=== PATIENT | female | born 1965 | race Caucasian/White ===

== ENCOUNTER 2023-11-18 04:48 | Emergency (ER) | payer BC, SELFPAY ==
[2023-11-18 04:50] VITALS: BP 147/81
--- NOTE | 2023-11-18 05:25 | ED.GENMED ---
History of Present Illness
General
Chief Complaint: Musculo-Skeletal Complaint
Source: patient
Exam Limitations: none
Time Seen by Provider: 11/18/23 05:15
Nursing documentation reviewed up to this point in time: agreed with
History of Present Illness
History of Present Illness:
This is a 57-year-old woman who complains of left shoulder pain that began 5 days ago. No insightful injury. She is left-hand dominant. Left shoulder pain is much worse with abduction and internal rotation. She has been taking Aleve sporadically
with only minimal relief. She was evaluated at urgent care and reports x-rays were unremarkable.
She states she was told by urgent care that she may need an MRI and she presents today for further evaluation.
No history of similar episodes of shoulder pain in the past. She denies fevers or chills, no headache. She does admit to mild discomfort left posterior lateral neck that she only noticed today.
She has no weakness nor numbness. No swelling. No chest pain or palpitations.
Past History
Past History
ED Past Medical History: Asthma, GERD, Hypercholesterolemia, Hypothyroidism, Psychiatric (A/D) and Other (back pain, ARETHA)
ED Past Surgical History: Other (n/c)
Social History
Tobacco: Non-smoker
Alcohol: Occasional
Drug: None
Personal:
Living: with family
Employment: Employed
Family History
Family History: Other (n/c)
Phy Exam
Physical Exam
Physical Exam:
GENERAL: 57-year-old overweight woman appears her stated age, awake and alert, pleasant, appears in no acute distress.
NECK: Supple, nontender, no meningismus, no significant adenopathy.
ENT: oral mucosa is moist. No rhinorrhea.
CARDIAC: Regular rate and rhythm. no murmur.
LUNGS: Clear breath sounds bilaterally, no acute respiratory distress, no wheezes/rales/rhonchi
ABDOMEN: Rotund, soft, nondistended, without focal tenderness
NEUROLOGICAL: Alert and oriented x3, no focal neuro deficits. Gait is mckeon and steady.
SKIN: Warm and dry, normal color, skin intact. No rash.
MUSCULOSKELETAL: No C/C/E. peripheral pulses are full and equal b/l. There is moderate tenderness about the left shoulder but no erythema, no joint effusion, no crepitus. Moderately restricted abduction as well as internal rotation. No difficulty
with external rotation. There is no tenderness to the forearm, elbow. Hand grasp are full and equal bilaterally.
PSYCH: Normal and appropriate interaction.
Course
Orders/Labs/Results
Orders:
Orders
11/18/23 05:25
Ketorolac [Toradol] 60 mg IM NOW STA
Vital Signs
Initial and Last Documented VS:
Initial Vital Signs
Temp Pulse Resp BP Pulse Ox
98.5 F 66 18 147/81 99
11/18/23 04:50 11/18/23 04:50 11/18/23 04:50 11/18/23 04:50 11/18/23 04:50
Last Documented Vital Signs
Temp Pulse Resp BP Pulse Ox
98.5 F 66 18 147/81 99
11/18/23 04:50 11/18/23 04:50 11/18/23 04:50 11/18/23 04:50 11/18/23 04:50
MDM/Problems Addressed
Differential Diagnosis Includes:
5-day history of left shoulder pain without history of trauma.
Moderate tenderness about the left shoulder with limited range of motion related to pain but no evidence of frozen shoulder, there is no erythema, nothing to suggest infectious/inflammatory process.
History and exam most consistent with left shoulder tendinitis.
Recommend supportive measures, NSAIDs, local heat, rest.
Recommend follow-up with PCP as physical therapy may be indicated.
At this point no indication for urgent/emergent MR especially as she has had no history of significant trauma, no evidence of neuropathy/neurologic deficit.
Will give an IM dose of Toradol and a prescription for diclofenac has been provided. Discussed importance of taking diclofenac with food.
*Pulse Oximetry
Patient hypoxic: no
*Critical Care Note
Total Time (30-74mins, 75-104mins- exclusive of procedures): Not Applicable
ED Attending Note
-
Portions of this chart may have been created with voice recognition software.� Occasional wrong word or��sound alike� substitutions may have occurred due to the inherent limitations of voice recognition software.
Discharge Plan
Departure
Patient Disposition: Home (Routine Discharge)
Date of Disposition: 11/18/23
Time of Disposition: 05:25
Patient with high blood pressure during this ER visit?: Yes
Condition: Good
Discharge Problem:
Biceps tendinitis of left shoulder
Instructions: Biceps tendinopathy, BLOOD PRESSURE
Prescriptions:
New
diclofenac sodium 75 mg tablet,delayed release (DR/EC)
75 mg PO BID PRN (Reason: pain) Qty: 30 0RF
No Action
magnesium oxide 400 MG tablet
800 mg PO HS
omeprazole 20 MG capsule,delayed release(DR/EC)
20 mg PO HS
rabies vacc,human diploid (PF) [Imovax Rabies Vaccine (PF)] 1 ML recon soln
1 ml IM NOW Qty: 1 3RF
Rx Instructions:
to be given on 06/27/21, 06/30/21, 07/07/21
rosuvastatin 5 MG tablet
5 mg PO QPM
zolpidem 5 MG tablet
5 mg PO HS
metaxalone 400 MG tablet
400 mg PO Q4HPRN PRN (Reason: pain)
ubrogepant [Ubrelvy] 50 MG tablet
50 mg PO DAILY PRN (Reason: migraine)
praziquantel 600 mg tablet
3,000 mg PO ONCE Qty: 10 0RF
Rx Instructions:
Repeat 10 days later
Referrals:
Inessa Reyez DO [Active] - Call in 1-3 days for appt
Interventions
Interventions:
*Risk Screen - Suicide Last Done: 11/18/23 04:50
*General Assessment Last Done: 11/18/23 04:50
*Neglect/Abuse Screening Last Done: 11/18/23 04:50
Discharge Date and Time
Print Language: SYRIAC
[2023-11-18 05:36] VITALS: BMI 45.6
[2023-11-18 05:45] VITALS: BP 118/70
[2023-11-18] MEDS: TORADOL 60 MG IM (05:45)
== END 2023-11-18 05:55 | disposition home or self-care (01) ==
LOC: EMR 04:48
PROVIDERS: EMERGENCY PHYSICIAN Emergency Medicine; FAMILY PHYSICIAN Family Medicine
DX: M75.22 Bicipital tendinitis, left shoulder (principal); M54.2 Cervicalgia; R03.0 Elevated blood-pressure reading, without diagnosis of hypertension; K21.9 Gastro-esophageal reflux disease without esophagitis; E78.00 Pure hypercholesterolemia, unspecified; E03.9 Hypothyroidism, unspecified; G47.33 Obstructive sleep apnea (adult) (pediatric); F41.9 Anxiety disorder, unspecified; F32.A Depression, unspecified; M54.9 Dorsalgia, unspecified; Z88.5 Allergy status to narcotic agent; Z88.0 Allergy status to penicillin; Z91.048 Other nonmedicinal substance allergy status
CPT/HCPCS: 99284; 96372

== ENCOUNTER 2024-02-17 10:45 | Emergency (ER) | payer BC, SELFPAY ==
[2024-02-17 11:05] VITALS: BP 137/91
--- NOTE | 2024-02-17 11:11 | ED.GENMED ---
History of Present Illness
<Sara Gimenez PA-C - Last Filed: 02/17/24 17:37>
General
Chief Complaint: Skin Problem
Source: patient
Exam Limitations: none
Time Seen by Provider: 02/17/24 11:09
Nursing documentation reviewed up to this point in time: agreed with
History of Present Illness
History of Present Illness:
58-year-old female with past medical history of anxiety, depression, asthma, presenting emergency department today with concerns of left breast mass. Patient states that she first noticed a small bump around 3 weeks ago. Patient states that she
reportedly put castor oil and mupirocin over it and she reports that it did not improve and continued to get bigger. Patient reports that within the last 3 days, she started to have pain in the area and noted redness surrounding it. Patient denies
any drainage from the area. Patient also states that last night, she noticed the breast pain radiate into her left arm. Patient denies any fevers or chills, any nausea or vomiting. She was seen by urgent care today who advised her to report to
the emergency department. Patient is never had issues with her breast before. Patient is currently postmenopausal, she takes oral exogenous estrogen. Patient denies any drainage from her nipples. Patient denies any streaking of the rash or
redness into her left arm.
Past History
<Sara Gimenez PA-C - Last Filed: 02/17/24 17:37>
Past History
ED Past Medical History: Asthma, GERD, Hypercholesterolemia, Hypothyroidism, Psychiatric (A/D) and Other (back pain, ARETHA)
ED Past Surgical History: Other (n/c)
Social History
Tobacco: Non-smoker
Alcohol: Occasional
Drug: None
Personal:
Living: with family
Employment: Employed
Family History
Family History: Other (n/c)
Review of Systems
<Sara Gimenez PA-C - Last Filed: 02/17/24 17:37>
Review of Systems
All Other Systems: ROS reviewed and negative except as documented in HPI and ROS
Phy Exam
<Sara Gimenez PA-C - Last Filed: 02/17/24 17:37>
Physical Exam
Physical Exam:
General: Patient is well appearing and in no acute distress; non-toxic
Skin: Warm and dry, red fluctuant mass noted in the left lower quadrant of the left breast with no active drainage. No discharge expressed from the nipple. No axillary lymphadenopathy. No breast dimpling. Mild erythema noted in the upper outer
quadrant of left breast, no streaking of rash down the arm.
Head: Normocephalic, atraumatic
Eyes: Sclera non-icteric. EOMs intact.
Cardiac: Regular rate and rhythm, no murmurs
Pulm: Normal respiratory effort
Musculoskeletal:No tenderness to palpation of the left upper extremity.
Neuro: CN II-XII intact, no focal neurologic deficits.
Psychiatric: Appropriate mood and affect.
Course
<Sara Gimenez PA-C - Last Filed: 02/17/24 17:37>
Orders/Labs/Results
Orders:
Orders
02/17/24 10:46
ECG [Electrocardiogram (*1)] Urgent
Reason for Study: Chest Pain
EKG- Treatment ONCE
02/17/24 11:42
Complete Blood Count/With Diff Urgent
Comprehensive Metabolic Panel Urgent
02/17/24 11:46
US Breast Left Ltd [facility] Urgent
Reason for Exam: MASS/REDNESS
Abnormal Lab Results
02/17/24
11:42
Monocytes % 9.5 H %
(1.7-9.3)
Eosinophils % 6.8 H %
(0-6)
Chloride 108 H mmol/L
(98-107)
BUN 19 H mg/dl
(7-17)
Glucose 125 H mg/dl
(70-99)
ALT 39 H U/L
(0-35)
02/17/24 11:42
02/17/24 11:42
Vital Signs
Initial and Last Documented VS:
Initial Vital Signs
Temp Pulse Resp BP Pulse Ox
98.6 F 70 16 137/91 98
02/17/24 11:05 02/17/24 11:05 02/17/24 11:05 02/17/24 11:05 02/17/24 11:05
Last Documented Vital Signs
Temp Pulse Resp BP Pulse Ox
98.6 F 70 14 114/80 100
02/17/24 11:05 02/17/24 13:48 02/17/24 13:48 02/17/24 13:48 02/17/24 13:48
<Ayush Sinha, DO - Last Filed: 02/17/24 13:29>
Orders/Labs/Results
Orders:
Orders
02/17/24 10:46
ECG [Electrocardiogram (*1)] Urgent
Reason for Study: Chest Pain
EKG- Treatment ONCE
02/17/24 11:42
Complete Blood Count/With Diff Urgent
Comprehensive Metabolic Panel Urgent
02/17/24 11:46
US Breast Left Ltd [facility] Urgent
Reason for Exam: MASS/REDNESS
Abnormal Lab Results
02/17/24
11:42
Monocytes % 9.5 H %
(1.7-9.3)
Eosinophils % 6.8 H %
(0-6)
Chloride 108 H mmol/L
(98-107)
BUN 19 H mg/dl
(7-17)
Glucose 125 H mg/dl
(70-99)
ALT 39 H U/L
(0-35)
02/17/24 11:42
02/17/24 11:42
Vital Signs
Initial and Last Documented VS:
Initial Vital Signs
Temp Pulse Resp BP Pulse Ox
98.6 F 70 16 137/91 98
02/17/24 11:05 02/17/24 11:05 02/17/24 11:05 02/17/24 11:05 02/17/24 11:05
Last Documented Vital Signs
Temp Pulse Resp BP Pulse Ox
98.6 F 70 14 114/80 100
02/17/24 11:05 02/17/24 13:48 02/17/24 13:48 02/17/24 13:48 02/17/24 13:48
Sugeylt;Sara Gimenez PA-C - Last Filed: 02/17/24 17:37>
MDM/Problems Addressed
Differential Diagnosis Includes:
Differentials include breast abscess, cyst, fibrotic disease, candidal infection, inflammatory breast cancer, mastitis/cellulitis
MDM/Problems Addressed:
58-year-old female history of hydradenitis suppurativa, postmenopausal on oral estrogen presents to the emergency department today with concerns of left painful breast mass. Physical exam is consistent with breast abscess, there is no drainage from
nipple, there is no lymphangitis or streaking down the arm. She had ultrasound today which demonstrated possibly an infected sebaceous cyst. Her CBC and CMP are unremarkable. No indications for admission for IV antibiotics at this time. I spoke
to Dr. Patel, breast surgeon, who recommends IR aspiration of the cyst. Spoke to IR who states that the cysts is not big enough that it would require ultrasound drainage and they stated that they were busy today, so again discussed this with
Amanda who will see patient today in the office for aspiration, and prefers to do a culture at that time and prefers to start an antibiotic herself. For this reason, we will not be sending the patient a prescription for antibiotic as patient will
be seen the breast surgeon shortly after being discharged. Discussed this with patient, patient is okay with this plan, discussed return precautions, patient stable for discharge
Chronic conditions affecting care:
Anxiety, depression, asthma, hyperlipidemia, GERD
Acute Exacerbation and/or Progression of Chronic Illness:
n/a
<Sara Gimenez PA-C - Last Filed: 02/17/24 17:37>
*Pulse Oximetry
Patient hypoxic: no
*Critical Care Note
Total Time (30-74mins, 75-104mins- exclusive of procedures): Not Applicable
Data Reviewed
Review of Other/Old Records Reveals: Records (Reviewed ER physician documentation from 11/18/2023, reviewed ER physician documentation from 04/26/2023, patient was treated for tapeworm infection)
Source: patient and records
Prescriptions/Medications Considered But Not Given:
Considered starting patient on antibiotic however patient will see the breast surgeon today who will start her on an antibiotic
Further Testing Considered But Not Given:
n/a
ED Attending Note
<Sara Gimenez PA-C - Last Filed: 02/17/24 17:37>
-
Portions of this chart may have been created with voice recognition software.� Occasional wrong word or��sound alike� substitutions may have occurred due to the inherent limitations of voice recognition software.
<Ayush Sinha DO - Last Filed: 02/17/24 13:29>
ED Attending Note
Patient seen and examined by attending physician: Yes
I performed the substantive portion of visit, reviewed & personally made and approve the management plan that is documented in note by myself or JOURDAN.: Yes
ED Attending Note:
58-year-old female presents with several days of a left breast lesion. She started with topical agents to see if it would improve but symptoms persisted. She does have a history of hidradenitis suppurativa. The patient states that the area has
become bigger. Exam: Abscess noted to the left lateral breast at about the 2 o'clock position from the areola. There is no streaking lymphangitis. There is mild tenderness and there certainly is fluctuance. Lesion is about 2 cm in diameter.
Assessment and plan: Coordinate with breast surgery for proper incision and drainage.
Discharge Plan
Departure
Patient Disposition: Home (Routine Discharge)
Date of Disposition: 02/17/24
Time of Disposition: 13:20
Patient with high blood pressure during this ER visit?: Yes
Condition: Good
Discharge Problem:
Left breast abscess
Instructions: Common breast problems, BLOOD PRESSURE, Skin Abscess
Prescriptions:
No Action
magnesium oxide 400 MG tablet
800 mg PO HS
omeprazole 20 MG capsule,delayed release(DR/EC)
40 mg PO HS
metaxalone 400 MG tablet
400 mg PO Q4HPRN PRN (Reason: pain)
Ubrelvy 50 MG tablet
50 mg PO DAILY PRN (Reason: migraine)
fexofenadine [Sophia Allergy] 60 mg Tablet
180 mg PO DAILY
Linzess 145 mcg Capsule
145 mcg PO DAILY
estradiol
pravastatin
PO Q48H
progesterone
pantoprazole [Protonix] 40 mg tablet,delayed release (DR/EC)
40 mg PO DAILY Qty: 30 0RF
Referrals:
Danya Patel MD [Active] -
Inessa Reyez DO [Family Provider] -
Activity Restrictions/Additional Instructions:
PLEASE REPORT TO [address] [place], [place] [address]celsa Bob TrezevantJOSÉ ANTONIO. [address] second floor, breast surgery. PLEASE REQUEST DR. PATEL, she is expecting you.
Please return to emergency department should you experience fevers or chills, nausea or vomiting, streaking of the redness down the arm, chest pain, shortness of breath, or any other signs or symptoms concerning to you.
Interventions
Interventions:
*Risk Screen - Suicide Last Done: 02/17/24 11:05
*General Assessment Last Done: 02/17/24 13:48
*Neglect/Abuse Screening Last Done: 02/17/24 11:05
*Nursing Disposition Last Done: 02/17/24 13:48
Discharge Date and Time
Discharge Date/Time: 02/17/24 13:49
Print Language: MAURITANIAN
[2024-02-17 11:56] LABS: % Basophils 0.9 % (0-2); % Eosinophils 6.8 % (0-6); % Immature Granulocytes 0.2 % (0-0.5); % Lymphocytes 30.4 % (20.5-51.1); % Monocytes 9.5 % (1.7-9.3); % Neutrophils 52.2 % (42.2-75.2); Absolute Basophils 0.1 10^3/uL (0-0.2); Absolute Eosinophils 0.5 10^3/uL (0-0.7); Absolute Monocytes 0.6 10^3/uL (0.1-0.6); Absolute Neutrophils 3.5 10^3/uL (1.4-6.5); Hematocrit 40.4 % (37.0-47.0); Hemoglobin 13.6 g/dL (12.0-16.0); Mean Corp Hgb Conc. 33.7 g/dL (33.0-37.0); Mean Corpuscular Hgb 27.9 pg (27.0-31.0); Nucleated Red Blood Cells % 0 %; Platelet Count 253 10^3/uL (130-400); Red Blood Cell Count 4.87 10^6/uL (4.20-5.40); Red Cell Dist. Width 13.4 % (11.5-14.5); White Blood Cell Count 6.6 10^3/uL (4.8-10.8)
[2024-02-17 12:10] LABS: ALT (SGPT) 39 U/L (0-35); AST (SGOT) 26 U/L (14-36); Albumin 4.2 g/dl (3.5-5.0); Alkaline Phosphatase 58 U/L (38-126); Blood Urea Nitrogen 19 mg/dl (7-17); Calcium 9.6 mg/dl (8.4-10.2); Carbon Dioxide 23 mmol/L (22-30); Chloride 108 mmol/L (98-107); Glucose 125 mg/dl (70-99); Potassium 4.5 mmol/L (3.5-5.1); Sodium 140 mmol/L (135-145); Total Bilirubin 0.4 mg/dl (0.2-1.3); Total Protein 6.8 g/dl (6.3-8.2); eGFR > 60.00
[2024-02-17 13:48] VITALS: BP 114/80
== END 2024-02-17 13:49 | disposition home or self-care (01) ==
LOC: EMR 10:45
PROVIDERS: Physician Assistant; EMERGENCY PHYSICIAN Emergency Medicine; FAMILY PHYSICIAN Family Medicine
DX: N61.1 Abscess of the breast and nipple (principal)
CPT/HCPCS: 99285; 76642; 80053; 85025; 93005

== ENCOUNTER 2024-04-02 11:25 | Emergency (ER) | payer BC, SELFPAY ==
[2024-04-02 11:32] VITALS: BP 150/83
--- NOTE | 2024-04-02 12:38 | ED.GENMED ---
History of Present Illness
General
Chief Complaint: Head Injury
Source: patient
Time Seen by Provider: 04/02/24 12:25
History of Present Illness
History of Present Illness:
58yoF with a history of hyperlipidemia, asthma, and ARETHA presenting for evaluation after a head injury. Patient was assisting a lost dog when the dog pulled the patient causing her to fall forward and strike her head/face against the front of her
car. There was no loss of consciousness. She had a L sided nosebleed which has resolved on arrival. She is presenting with a nasal laceration with associated headache and nasal pain. No vomiting. Unknown last Tdap.
Past History
Past History
ED Past Medical History: Asthma, GERD, Hypercholesterolemia, Hypothyroidism, Psychiatric (A/D) and Other (back pain, ARETHA)
ED Past Surgical History: Other (n/c)
Social History
Tobacco: Non-smoker
Alcohol: Occasional
Drug: None
Personal:
Living: with family
Employment: Employed
Family History
Family History: Other (n/c)
Phy Exam
General Physical Exam
General Presentation: well appearing and no apparent distress
General age: appears stated age
General Skin: warm and dry
General Habitus: normal
General Mental: alert
ENT Exam
ENT Exam: other (2cm laceration to nasal bridge with flap. +Nasal tenderness and swelling. No active epistaxis or septal hematoma. +Developing frontal hematoma noted. No C spine tenderness with full ROM.)
Neurological Exam
Neurological Exam: alert
Gabriella Coma Scale
Eye Opening: Spontaneous
Verbal Response: Oriented
Motor Response: Obeys Commands
GCS Total Score: 15
Skin Exam
Skin Exam: warm/dry and other (Abrasions noted to bilateral knees and R thumb)
Psychiatric Exam
Psychiatric Exam: normal mood/affect
Course
Orders/Labs/Results
Orders:
Orders
04/02/24 11:41
CT Head W/o Iv Contrast Urgent
Comment:
Reason For Exam: head strike/ no thinners
04/02/24 12:36
Lidocaine/Epinephrine/Tetracai [Let Topical Anesthetic Gel] 3 ml TOPICAL NOW STA
Tetanus/Diphth/Acelpertussis [Adacel] 0.5 ml IM .ONCE ONE
04/02/24 12:53
CR Nasal Bones Comp Min 3 View Urgent
Comment:
Reason For Exam: nasal injury
Vital Signs
Initial and Last Documented VS:
Initial Vital Signs
Pulse BP Pulse Ox
65 150/83 99
04/02/24 11:32 04/02/24 11:32 04/02/24 11:32
Last Documented Vital Signs
Temp Pulse BP Pulse Ox
97.8 F 65 150/83 99
04/02/24 11:35 04/02/24 11:32 04/02/24 11:32 04/02/24 11:32
Procedures
Laceration Closure
Nose:
Status of Wound: clean
Size of Wound in cm: 2
Description of Wound Edges: flap-well vascularized
Preparation: cleaned with saline
Anesthesia: 1% Lidocaine
Revision/Debridement: routine- no revision
Wound exploration: explored to base- no FB
Type of Closure: single layer closure
Skin Closure Material: 6-0 nylon
Number of sutures: 4
MDM/Problems Addressed
Differential Diagnosis Includes:
58yoF here after a mechanical fall. +Struck head on front of car. No LOC. C/o headache and nasal pain. VSS. She is awake, alert, with a GCS of 15. There is a laceration to the bridge of the nose with swelling/tenderness. Cervical spine cleared via
NEXUS criteria. Differential diagnosis includes but is not limited to: Closed head injury, concussion, skull fracture, nasal fracture, intracranial hemorrhage
Initial ED plan: CT head obtained in triage which is negative for acute findings. Will obtain nasal bone x-rays, update Tdap, and repair laceration.
*Critical Care Note
Total Time (30-74mins, 75-104mins- exclusive of procedures): Not Applicable
Update Note
Update Note:
Nasal x-rays show a nondisplaced R nasal bone hairline fracture. Laceration repaired as above. Will cover with abx given fracture with overlying laceration. She was started on a course of cefdinir (PCN allergy). Home wound care discussed. Patient
advised to have sutures removed in 5 days. She was discharged in stable condition.
ED Attending Note
-
Portions of this chart may have been created with voice recognition software.� Occasional wrong word or��sound alike� substitutions may have occurred due to the inherent limitations of voice recognition software.
Discharge Plan
Departure
Patient Disposition: Home (Routine Discharge)
Date of Disposition: 04/02/24
Time of Disposition: 14:42
Patient with high blood pressure during this ER visit?: Yes
Discharge Problem:
Laceration of nose, Fracture of nasal bone, Closed head injury
Instructions: Laceration Repair With Stitches ED, Nose Fracture ED
Prescriptions:
New
cefdinir 300 mg capsule
300 mg PO BID Qty: 14 0RF
No Action
magnesium oxide 400 MG tablet
800 mg PO HS
omeprazole 20 MG capsule,delayed release(DR/EC)
40 mg PO HS
metaxalone 400 MG tablet
400 mg PO Q4HPRN PRN (Reason: pain)
Ubrelvy 50 MG tablet
50 mg PO DAILY PRN (Reason: migraine)
fexofenadine [Sophia Allergy] 60 mg Tablet
180 mg PO DAILY
Linzess 145 mcg Capsule
145 mcg PO DAILY
estradiol
pravastatin
PO Q48H
progesterone
pantoprazole [Protonix] 40 mg tablet,delayed release (DR/EC)
40 mg PO DAILY Qty: 30 0RF
Referrals:
Inessa Reyez DO [Family Provider] -
Isabel Montes MD [Active] -
Activity Restrictions/Additional Instructions:
Take antibiotics as prescribed. Keep wound clean and dry. Do not get wet for 24 hours.
Apply ice to affected area. Take Tylenol and ibuprofen for pain.
Your sutures should be removed in 5 days. Return to the ER with any signs of infection.
Interventions
Interventions:
*Risk Screen - Suicide Last Done: 04/02/24 11:35
*Neglect/Abuse Screening Last Done: 04/02/24 11:45
ED- Fall Risk Assessment Last Done: 04/02/24 15:11
*ED COVID-19 Vaccine History Last Done: 04/02/24 11:32
*Nursing Disposition Last Done: 04/02/24 15:11
ED- Neurological Assessment Last Done: 04/02/24 13:15
ED-Skin Assessment Last Done: 04/02/24 13:15
Discharge Date and Time
Discharge Date/Time: 04/02/24 15:11
Print Language: CAMBODIAN
[2024-04-02] MEDS: ADACEL 0.5 ML IM (12:42)
[2024-04-02] MEDS: LET TOPICAL ANESTHETIC GEL 3 ML TOPICAL (12:44)
== END 2024-04-02 15:11 | disposition home or self-care (01) ==
LOC: EMR 11:25
PROVIDERS: EMERGENCY PHYSICIAN Emergency Medicine; FAMILY PHYSICIAN Family Medicine
DX: S01.21XA Laceration without foreign body of nose, initial encounter (principal); S02.2XXA Fracture of nasal bones, initial encounter for closed fracture; W18.39XA Other fall on same level, initial encounter; E03.9 Hypothyroidism, unspecified; E78.00 Pure hypercholesterolemia, unspecified; G47.33 Obstructive sleep apnea (adult) (pediatric); J45.909 Unspecified asthma, uncomplicated; K21.9 Gastro-esophageal reflux disease without esophagitis; Z23 Encounter for immunization
CPT/HCPCS: 12011; 90471; 99284; 70160; 70450; 90715